=== PATIENT | female | born 2005 | race Caucasian/White ===

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

== ENCOUNTER 2025-02-25 23:40 | Emergency (ER) | payer BC, MEDICAID ==
[~2025-02-25] VITALS: Wt 65.9 kg
[2025-02-25] MEDS ORDERED: Mag/Al Hydrox/Simeth Susp 30 ML CUP PO ONE (23:45)
[2025-02-26] MEDS ORDERED: Lidocaine 2% Viscous 15 ML UNIT DOSE CUP MM ONE (00:15)
[2025-02-26 00:46] LABS: ALBUMIN 4.8 g/dL (3.5-5.0)
[2025-02-26 00:48] LABS: BASO # 0.04 K/mm3 (0.02-0.10); EOS # 0.29 K/mm3 (0.04-0.40); EOS % 3.1 % (0.1-4.0); HEMOGLOBIN 13.5 g/dL (12.0-15.0); LYMPH# 3.59 K/mm3 (1.20-3.40); MEAN CELL VOLUME 87 fl (78-95); MEAN CORPUSCULAR HEMOGLOBIN 29 pg (26-32); MEAN CORPUSCULAR HGB CONC 34 g/dL (33-37); MEAN PLATELET VOLUME 9.6 fl (7.4-10.4); MONO # 0.59 K/mm3 (0.10-0.60); PLATELET COUNT 296 K/mm3 (130-400); RED BLOOD COUNT 4.62 M/mm3 (4.10-5.30); RED CELL DISTRIBUTION WIDTH 12.3 % (11.5-14.5); WHITE BLOOD COUNT 9.2 K/mm3 (4.8-10.8)
[2025-02-26 00:49] LABS: TOTAL PROTEIN 7.8 g/dL (6.4-8.3)
[2025-02-26 00:50] LABS: TOTAL BILIRUBIN 0.3 mg/dL (0.2-1.2)
[2025-02-26] MEDS ORDERED: NS 100 ML IV SCH (01:16)
[2025-02-26] MEDS ORDERED: Iohexol 300 - 100 ML VIAL IV ONE (01:17)
[2025-02-26 01:28] LABS: PH-URINE 5.5 (5.0 - 8.0); URINE APPEARANCE CLEAR (CLEAR); URINE BILIRUBIN NEGATIVE (NEGATIVE); URINE BLOOD NEGATIVE (NEGATIVE); URINE COLOR LIGHT YELLOW (YELLOW); URINE GLUCOSE NEGATIVE (NEGATIVE); URINE KETONE NEGATIVE (NEGATIVE); URINE LEUKOCYTE ESTERASE NEGATIVE (NEGATIVE); URINE NITRATE NEGATIVE (NEGATIVE); URINE PROTEIN(semi-quant) NEGATIVE (NEGATIVE)
[2025-02-26 02:36] VITALS: BP 114/67
[2025-02-28] MEDS ORDERED: MACROBID 100 M100 MG PO (16:03)
== END 2025-02-26 02:36 | disposition home or self-care (01) ==
LOC: ED 23:40
PROVIDERS: Physician Assistant
DX: K29.70 Gastritis, unspecified, without bleeding (principal); K52.9 Noninfective gastroenteritis and colitis, unspecified; Z88.1 Allergy status to other antibiotic agents; Z88.2 Allergy status to sulfonamides
CPT/HCPCS: Q9967